=== PATIENT | female | born 1950 | race Caucasian/White ===

== ENCOUNTER 2021-06-20 14:08 | Outpatient (CLI) | payer MEDICARE, BC ==
[~2021-06-20] VITALS: Ht 172.7 cm; Wt 99.0 kg
[2021-06-20 14:45] VITALS: BP 136/78; PULSE 64; TEMP 98.5
[2021-06-20] MEDS ORDERED: HYZAAR 25 MG-101 TAB PO (17:34)
[2021-06-20] MEDS ORDERED: OSTEO-BI-FLEX 21 TAB PO (17:35)
[2021-06-20] MEDS ORDERED: CALCIUM 600600 MG PO (17:36)
[2021-06-20] MEDS ORDERED: VITAMIND3 5000 PO (17:36)
[2021-06-20] MEDS ORDERED: NATURAL E400 IU PO (17:37)
[2021-06-20] MEDS ORDERED: COMPLETE MULTI1 TAB PO (17:37)
[2021-06-20] MEDS ORDERED: SUPARTZ FX10 MG/1 ML (17:38)
[2021-06-20] MEDS ORDERED: THE MEDICINE S200 M2 PO (17:38)
[2021-06-20] MEDS ORDERED: VITAMIN B COMPL1 T16 PO (17:39)
[2021-06-20] MEDS ORDERED: IRON TABLETS325 MG PO (17:45)
[2021-06-20] MEDS ORDERED: PEPCID AC20 MG PO (17:45)
== END 2021-06-20 15:15 | disposition home or self-care (01) ==
LOC: EUO 14:08
DX: M81.0 Age-related osteoporosis without current pathological fracture (principal)
CPT/HCPCS: J3489

== ENCOUNTER → 2023-04-25 | Outpatient (CLI) | payer MEDICARE ==
[~2023-04-25] MED LIST: CALCIUM 600600 MG PO; COMPLETE MULTI1 TAB PO; HYZAAR 25 MG-101 TAB PO; IRON TABLETS325 MG PO; LUTEIN20 M1 PO; NATURAL E400 IU PO; NORVASC 5MG5 MG/TAB PO; OSTEO-BI-FLEX 21 TAB PO; PEPCID AC20 MG PO; SUPARTZ FX10 MG/1 ML; THE MEDICINE S200 M2 PO; ULTRA OMEGA EAC PO; VITAMIN B COMPL1 T16 PO; VITAMIND3 5000 PO
== END ==
LOC: MC.RAD 12:52
DX: R92.8 Other abnormal and inconclusive findings on diagnostic imaging of breast (principal)